=== PATIENT | male | born 2000 | race Caucasian/White ===

== ENCOUNTER 2020-01-17 13:44 | Emergency (ER) | payer OTHER, SELFPAY ==
[2020-01-17 13:45] VITALS: BP 133/70; PULSE 94; RESP 16; TEMP 36.6; O2SAT 100; BMI 31.5
--- NOTE | 2020-01-17 14:16 | EKG12_ITS ---
Test Reason : PALPITATIONS Blood Pressure : / mmHG Vent. Rate : 101 BPM Atrial Rate : 101 BPM P-R Int : 124 ms QRS Dur : 100 ms QT Int : 336 ms P-R-T Axes : 076 074 043 degrees QTc Int : 435 ms Sinus tachycardia Incomplete right bundle branch block Borderline ECG Confirmed by CARMENZA BERRY ([id number]), assistant editor ISELA CASTANEDA ([id number]) on 01/18/2020 3:02:50 PM Referred By: MAGGIE/ERIC Confirmed By:CARMENZA BERRY
--- NOTE | 2020-01-17 14:20 | RAD_ITS ---
EXAM DESCRIPTION: PA and lateral chest CLINICAL HISTORY: 19 years Male, palpitations palpitations COMPARISON: None FINDINGS: The thorax is intact. The heart and mediastinum appear to be within normal limits. The lungs appear to be well areated without evidence of pneumonic consolidation or pleural effusion. RAD/Chest PA and Lateral IMPRESSION: Normal chest. Electronically Signed: Dougie Meadows, at 15:03 EST Tel , Service support ,
--- NOTE | 2020-01-17 14:52 | ED.VIS.GEN ---
History of Present Illness Chief Complaint: Palpitations Informant: Patient Onset: Weeks Maximum Severity: Mild Narrative: The patient is 19 no past history reports about a 1 week history of a sense that his heart races, he takes his pulse is at about 80-100 it is never higher than that, he has no other symptoms such as chest pain fever cough, he is not been ill in any way, he has had no other illnesses he has been eating and drinking well bowel and bladder habits are normal, he has no past history of any kind He indicates when he thinks about his heart racing he thinks that triggers rapid heart beating, he has no history of anxiety thyroid disorder he has no he depression or suicidal ideation, Past Medical History - Allergies and Home Meds Allergies/Adverse Reactions: Allergies No Known Allergies Allergy (Verified 01/17/20 13:48) Primary Care Physician: Care Physician,No Primary [Primary Care Provider] - Past Medical History: None Smoking Status: Never smoker Review of Systems General: Denies: Chills, Fever, Sweats Eyes: Denies: Visual changes - bilaterally, Diplopia ENT: Denies: Rhinorrhea, Sore throat Cardiovascular: Denies: Chest pain, Palpitations Respiratory: Denies: Dyspnea, Cough, Dyspnea on exertion Gastrointestinal: Denies: Abdominal pain, Nausea, Vomiting, Diarrhea, Melena, Hematochezia Genitourinary: Denies: Dysuria, Hematuria, Frequency Musculoskeletal: Denies: Back pain, Extremity Pain Skin: Denies: Rash, Wounds Neurological: Denies: Headache, Weakness, Numbness Physical Exam Vital Signs/Narrative: Vital Signs Temp Pulse Resp BP Pulse Ox 01/17/20 13:45 97.9 F 94 16 133/70 H 100 General: Well nourished, Well developed, No Acute Distress Head: Normocephalic, Atraumatic Eyes: Perrl, EOMI ENT: Moist mucous membranes, No rhinorrhea Neck: Supple, Nontender Cardiovascular: Regular rate, Regular rhythm, No murmurs Respiratory: No distress, CTA bilaterally, Chest nontender Abdomen: Soft, Nontender, Nondistended, Normal bowel sounds Back: Nontender, Normal Inspection Extremities: Nontender, No edema Skin: Normal color, No rash Neurological: Alert, Oriented x3, Cranial nerves II-XII grossly intact, Normal Strength, Normal Sensation Psychological: Normal affect, Normal Mood Diagnostic/Tx/Re-eval - Medical Decision Making The differential extensive the patient's vital signs are unremarkable he is currently having no symptoms he cannot trigger the palpitations His EKG shows a sinus rhythm rate 100 no acute injury pattern, chest x-ray shows nothing acute, during observation in the ED he has no change in his status Discussed that this issue with him we discussed obtaining ED evaluation with labs etc. he declined that at this time is comfortable with discharged home to follow-up with his outpatient providers and return for change in symptoms Home stable Final impression intermittent sense of palpitations ED Disposition - Plan for ED Patient: Diagnosis: Palpitations Instructions: Palpitations Referrals: Care Physician,No Primary [Primary Care Provider] - Elier Huber MD [STAFF PHYSICIAN] -
[2020-01-17 15:21] VITALS: BP 127/82; PULSE 86; RESP 16; O2SAT 97
== END 2020-01-17 15:26 | disposition home or self-care (01) ==
LOC: ED 14:35
PROVIDERS: Emergency Provider Emergency Medicine
DX: R00.2 Palpitations (principal)
CPT/HCPCS: 71046; 93005; 99282

== ENCOUNTER 2020-02-27 21:50 | Emergency (ER) | payer OTHER, SELFPAY ==
[2020-02-27 21:51] VITALS: BP 146/78; PULSE 131; RESP 17; TEMP 36.3; O2SAT 100; BMI 33.8
--- NOTE | 2020-02-27 21:53 | ED.RN ---
PULLED OLD EKG FOR
--- NOTE | 2020-02-27 22:42 | EKG12_ITS ---
Test Reason : PALPATIONS Blood Pressure : / mmHG Vent. Rate : 112 BPM Atrial Rate : 112 BPM P-R Int : 154 ms QRS Dur : 106 ms QT Int : 340 ms P-R-T Axes : 057 063 048 degrees QTc Int : 464 ms Sinus tachycardia Incomplete right bundle branch block Confirmed by IRENE DURAN, BETTINA ([id number]), editorial assistant ALMITA MCCOY ([id number]) on 02/28/2020 1:40:48 PM Referred By: DC Confirmed By:BETTINA BONILLA MD
[2020-02-27 22:57] VITALS: BP 137/72; PULSE 98; RESP 17; O2SAT 98
[2020-02-27 23:01] LABS: Absolute Lymphocyte Count 4.18 X10^3/uL (0.83-4.51); Absolute Neutrophil Count 7.1 X10^3/uL (2.0-7.7); Basophil# 0.07 X10^3/uL; Basophil% 0.6 % (0-1); Eosinophil# 0.17 X10^3/uL; Eosinophils% 1.4 % (0-5); Hematocrit 45.6 % (40-54); Hemoglobin 14.9 g/dL (13.0-16.5); Lymphocyte # 4.18 X10^3/ul (4.0); Lymphocyte % 33.9 % (19-41); Mean Corp Hgb Conc 32.7 g/dL (32-36); Mean Corpuscular Hgb 27.8 pg (27.0-32.0); Mean Corpuscular Volume 85.1 fL (80-94); Mean Platelet Vol. 9.9 fl (6.2-12.0); Monocyte# 0.76 X10^3/uL; Monocyte% 6.2 % (0-10); NRBC Flagged by Analyzer 0 % (0-5); Neutrophil % 57.6 % (47-70); Platelet Count 282 K/mm3 (150-450); RBC Distribution Width CV 12.6 % (11.6-14.6); RBC Distribution Width SD 38.6 fl (35.1-43.9); Red Blood Count 5.36 M/mm3 (4.6-6.2); White Blood Count 12.3 K/mm3 (4.4-11.0)
[2020-02-27 23:06] LABS: Anion Gap 5 (5-15); BUN 11 mg/dL (7-18); Calcium,Total 9.5 mg/dL (8.5-10.1); Chloride 106 mmol/L (98-107); EST Glomerular Filtration Rate 100 mL/min (>60); Est Glom Filt Rate - Afr Amer 121 mL/min (>60); Estimated Creatinine Clearance 116.85 ml/min; Glucose 66 mg/dL (74-106); Potassium 3.2 mmol/L (3.5-5.1); Sodium Level 139 mmol/L (136-145)
--- NOTE | 2020-02-27 23:10 | ED.VIS.GEN ---
History of Present Illness Chief Complaint: Palpitations Informant: Patient Onset: Hours - 1 Context: Sudden Onset - while lying at rest Timing: Continuous Quality: beating hard, fast Location: mid-chest Current Severity: Mild Maximum Severity: Moderate Worsened by: nothing Relieved by: nothing Associated Symptoms: mild mid-chest pain, dull Narrative: No near syncope or lightheadedness, no shortness of breath, sweating, neurologic symptoms. Does not do any drugs/illicit substances, does not drink a lot of caffeine. Has had this happen before, he felt lightheaded during that, was evaluated and never followed up. No recent illnesses. No recent travel or leg pain/swelling. No history of DVT or PE. Past Medical History - Allergies and Home Meds Allergies/Adverse Reactions: Allergies No Known Allergies Allergy (Verified 02/27/20 21:56) Primary Care Physician: Care Physician,No Primary [Primary Care Provider] - Past Medical History: None Surgical History: no surgical history Smoking Status: Never smoker Drugs: None Review of Systems General: Denies: Chills, Fever, Sweats Eyes: Denies: Visual changes - bilaterally, Diplopia ENT: Denies: Rhinorrhea, Sore throat Cardiovascular: Reports: Chest pain, Palpitations, Heart racing Respiratory: Denies: Dyspnea, Cough, Dyspnea on exertion Gastrointestinal: Denies: Abdominal pain, Nausea, Vomiting, Diarrhea, Melena, Hematochezia Genitourinary: Denies: Dysuria, Hematuria, Frequency Musculoskeletal: Denies: Back pain, Swelling, Extremity Pain Skin: Denies: Rash, Wounds Neurological: Denies: Headache, Weakness, Numbness Physical Exam Vital Signs/Narrative: Vital Signs Temp Pulse Resp BP Pulse Ox 02/27/20 22:57 98 17 137/72 H 98 02/27/20 21:51 97.4 F L 131 H 17 146/78 H 100 Inital Vital Signs reviewed: Yes General: Well nourished, Well developed, No Acute Distress - Well-appearing, no distress Head: Normocephalic, Atraumatic Eyes: Perrl, EOMI ENT: Moist mucous membranes, No rhinorrhea Neck: Supple, Nontender, No JVD Cardiovascular: Regular rate, Regular rhythm, No murmurs, Normal S1, Normal S2, Tachycardia Respiratory: No distress, CTA bilaterally, Chest nontender Abdomen: Soft, Nontender, Nondistended, Normal bowel sounds Back: Nontender, Normal Inspection Extremities: Nontender, No edema. Negative for: Calf Tenderness Skin: Normal color, No rash, No Trauma Neurological: Alert, Oriented x3, Cranial nerves II-XII grossly intact, Normal Strength, Normal Sensation, Normal Gait Psychological: Normal affect, Normal Mood Diagnostic/Tx/Re-eval - Rhythm Strip Rhythm Strip: Sinus Tach Rate: 112 Ectopy: None - EKG Initial EKG Interpretation: No Acute Injury Pattern, Sinus Tachycardia, - - Normal axis. Otherwise normal EKG. Upright T waves in inferior leads. Prior: Unchanged - Medical Decision Making Patient has slight hypokalemia, he was given potassium, in addition to Cardizem. He feels better. Will advise that he follow-up with cardiology, no prescriptions needed at this time. So advised to avoid stimulants like caffeine and drugs. ED Disposition - Plan for ED Patient: Disposition: Home or Assisted Living Diagnosis: Palpitations Referrals: Andrea Gillespie MD [STAFF PHYSICIAN] - 1 Week (call for appt)
[2020-02-27 23:14] VITALS: BP 131/81; PULSE 98; RESP 17; O2SAT 99
== END 2020-02-27 23:27 | disposition home or self-care (01) ==
PROVIDERS: Emergency Provider Emergency Medicine
DX: R00.2 Palpitations (principal)
CPT/HCPCS: 80048; 84484; 85025; 93005; 99285; J7030; A4216